=== PATIENT | female | born 1995 | race Caucasian/White ===

== ENCOUNTER 2021-02-02 15:02 | Emergency (ER) | payer OTHER ==
[~2021-02-02] VITALS: Ht 167.6 cm; Wt 102.3 kg
[2021-02-02] MEDS ORDERED: CYCL10TA17 PO (15:06)
[2021-02-02] MEDS ORDERED: HYDR-4723 PO (15:06)
[2021-02-02 15:16] VITALS: BP 116/88
[2021-02-02 15:26] LABS: GLUCOSE,POINT OF CARE 136 MG/DL (70-110)
[2021-02-02] MEDS ORDERED: KETOROLAC TROMETHAMINE 60 MG/2 ML VIAL IM ONE (15:45)
[2021-02-02] MEDS ORDERED: DIAZEPAM 5 MG/ML 2 ML SYRINGE IM ONE (15:45)
== END 2021-02-02 17:04 | disposition home or self-care (01) ==
LOC: EMS 15:07 → EDBD 15:07 → EMS 17:04
DX: M54.42 Lumbago with sciatica, left side (principal); E11.9 Type 2 diabetes mellitus without complications
CPT/HCPCS: 82962; 96372; 99284; J1885 ×2